=== PATIENT | male | born 1995 | race Caucasian/White ===

== ENCOUNTER 2017-05-12 13:30 | Emergency (ER) | payer BC ==
[2017-05-12 13:54] VITALS: BP 140/92
[2017-05-12] MEDS ORDERED: Alum Hydrox/Mag Hydrox/Simeth 30 ML, Lidocaine 2% 15 ML PO ONE ×2 (14:48)
[2017-05-12] MEDS ORDERED: Sodium Chloride 0.9% 10 ML Syringe FLUSH PRN (14:48)
[2017-05-12] MEDS ORDERED: HYDROmorphone 0.5 MG/0.5 ML Syringe IVPUSH ONE (14:49)
[2017-05-12] MEDS ORDERED: Iopamidol 612 MG/ML 150 ML Bottle IVPUSH ONE (14:52)
[2017-05-12] MEDS ORDERED: Diatrizoate Meglumine/Diatrizoate Sodium 37% 120 ML Bottle PO ONE (14:52)
[2017-05-12] MEDS ORDERED: Sodium Chloride 0.9% 10 ML Syringe FLUSH ONE (14:52)
--- NOTE | 2017-05-12 14:54 | EDM.PDOC ---
ED HPI GENERAL MEDICAL PROBLEM - General Chief Complaint: Gastrointestinal Problem Stated Complaint: ABDOMINAL PAIN Time Seen by Provider: 05/12/17 14:32 Source of Information: Reports: Patient History Limitations: Reports: No Limitations - History of Present Illness INITIAL COMMENTS - FREE TEXT/NARRATIVE: Patient is a 21-year-old male who presents to the ED complaining of sudden onset of left lower quadrant abdominal pain/flank pain that started this morning. States the pain is constant with waxing waning in intensity. At its peak it was in 8 or 9 out of 10. Currently is 5 out of 10. States the pain is worsened with palpation. Pain has radiated to the periumbilical region at this point. There is some mild nauseous with onset of discomfort. Denies any fever but notes that he does get flushed at times. He's had no similar symptoms in the past. No pain to his groin or testicles. No dysuria. No hematuria. No history ofkidney stones or diverticuli. No recent sick exposures or diarrhea. He does have acid reflux but states it's minimal. Denies any blood within the stools. He has no past medical history and currently taking no medications. Left Lower Abdomen Pain Score (Numeric/FACES): 5 - Related Data Allergies Allergy/AdvReac Type Severity Reaction Status Date / Time azithromycin [From Zithromax] Allergy Hives Verified 05/12/17 13:54 Home Meds: Home Meds . [No Known Home Meds] 05/12/17 [History] Past Medical History - Past Health History Medical/Surgical History: Denies Medical/Surgical History Social & Family History - Family History Family Medical History: Noncontributory - Tobacco Use Smoking Status *Q: Never Smoker Second Hand Smoke Exposure: No - Caffeine Use Caffeine Use: Reports: Coffee - Alcohol Use Days Per Week of Alcohol Use: 3 Number of Drinks Per Day: 1 Total Drinks Per Week: 3 - Recreational Drug Use Recreational Drug Use: No ED ROS GENERAL - Review of Systems Review Of Systems: ROS reveals no pertinent complaints other than HPI. ED EXAM, GI/ABD - Physical Exam Exam: See Below Exam Limited By: No Limitations General Appearance: Alert, WD/WN, Mild Distress Ears: Hearing Grossly Normal Nose: Normal Inspection Throat/Mouth: Normal Voice, No Airway Compromise Neck: Normal Inspection, Supple Respiratory/Chest: No Respiratory Distress, Lungs Clear, Normal Breath Sounds, No Accessory Muscle Use Cardiovascular: Normal Peripheral Pulses, Regular Rate, Rhythm, No Murmur GI/Abdominal Exam: Normal Bowel Sounds, Soft, No Organomegaly, No Distention, Other (Negative McBurney's or Greene sign. Pain along the left upper quadrant and also left lower quadrant. Quite tender with palpation. No rash present.) (Male) Exam: Deferred (No complaints per patient.) Back Exam: Normal Inspection. No: CVA Tenderness (L), CVA Tenderness (R) Neurological: Alert, Oriented, CN II-XII Intact, Normal Cognition, No Motor/ Sensory Deficits Psychiatric: Normal Affect, Normal Mood Skin Exam: Warm, Dry, Intact, Normal Color, No Rash Course - Vital Signs Last Recorded V/S: Last Vital Signs Temp 96.9 F 05/12/17 13:47 Pulse 72 05/12/17 13:47 Resp 18 05/12/17 13:47 BP 140/92 H 05/12/17 13:47 Pulse Ox 96 05/12/17 13:47 - Orders/Labs/Meds Orders: Active Orders 24 hr Category Date Time Status Peripheral IV Care [RC] . DIRECTED Care 05/12/17 14:48 Active UA W/MICROSCOPIC [URIN] Stat Lab 05/12/17 14:48 Uncollected Sodium Chloride 0.9% [Normal Saline] 1,000 ml Med 05/12/17 15:00 Active IV ASDIRECTED Sodium Chloride 0.9% [Saline Flush] Med 05/12/17 14:48 Active 10 ml FLUSH ASDIRECTED PRN Peripheral IV Insertion Adult [OM.PC] Stat Oth 05/12/17 14:48 Ordered Medication Orders Sodium Chloride (Normal Saline) 1,000 mls @ 250 mls/hr IV ASDIRECTED HUSEYIN Last Admin: 05/12/17 15:03 Dose: 250 mls/hr Sodium Chloride (Saline Flush) 10 ml FLUSH ASDIRECTED PRN PRN Reason: Keep Vein Open Last Admin: 05/12/17 15:03 Dose: 10 ml Labs: Laboratory Tests 05/12/17 05/12/17 Range/Units 14:50 14:50 WBC 6.51 (4.23-9.07) K/mm3 RBC 4.93 (4.63-6.08) M/mm3 Hgb 15.5 (13.7-17.5) gm/L Hct 43.2 (40.1-51.0) % MCV 87.6 (79.0-92.2) fl MCH 31.4 (25.7-32.2) pg MCHC 35.9 H (32.2-35.5) g/dl RDW Std Deviation 39.8 (35.1-43.9) fL Plt Count 282 (163-337) K/mm3 MPV 9.3 L (9.4-12.3) fl Neut % (Auto) 63.8 (34.0-67.9) % Lymph % (Auto) 25.3 (21.8-53.1) % [place] % (Auto) 8.1 (5.3-12.2) % Eos % (Auto) 2.3 (0.8-7.0) Baso % (Auto) 0.5 (0.1-1.2) % Neut # (Auto) 4.15 (1.78-5.38) K/mm3 Lymph # (Auto) 1.65 (1.32-3.57) K/mm3 [place] # (Auto) 0.53 (0.30-0.82) K/mm3 Eos # (Auto) 0.15 (0.04-0.54) K/mm3 Baso # (Auto) 0.03 (0.01-0.08) K/mm3 Sodium 138 (136-145) mEq/L Potassium 3.7 (3.5-5.1) mEq/L Chloride 102 (98-107) mEq/L Carbon Dioxide 27 (21-32) mEq/L Anion Gap 12.7 (5-15) BUN 12 (7-18) mg/dL Creatinine 0.9 (0.7-1.3) mg/dL Est Cr Clr Drug Dosing 149.69 mL/min Estimated GFR (MDRD) > 60 (>60) mL/min BUN/Creatinine Ratio 13.3 L (14-18) Glucose 95 (74-106) mg/dL Calcium 9.1 (8.5-10.1) mg/dL Total Bilirubin 1.2 H (0.2-1.0) mg/dL AST 38 H (15-37) U/L ALT 70 H (16-63) U/L Alkaline Phosphatase 91 (46-116) U/L C-Reactive Protein < 0.2 (<1.0) mg/dL Total Protein 7.5 (6.4-8.2) g/dl Albumin 4.1 (3.4-5.0) g/dl Globulin 3.4 gm/dL Albumin/Globulin Ratio 1.2 (1-2) Lipase 120 (73-393) U/L Meds: Medications Generic Name Dose Route Start Last Admin Trade Name Mino PRN Reason Stop Dose Admin Sodium Chloride 1,000 mls @ 250 mls/hr 05/12/17 15:00 05/12/17 15:03 Normal Saline IV 250 mls/hr ASDIRECTED HUSEYIN Administration Sodium Chloride 10 ml 05/12/17 14:48 05/12/17 15:03 Saline Flush FLUSH 10 ml ASDIRECTED PRN Administration Keep Vein Open Discontinued Medications Generic Name Dose Route Start Last Admin Trade Name Mino PRN Reason Stop Dose Admin Al Hydroxide/Mg Hydroxide 30 0 ml 05/12/17 14:48 05/12/17 15:04 ml/ Lidocaine HCl 15 ml PO 05/12/17 14:49 45 ml ONETIME ONE Administration Diatrizoate Meglum/Diatrizoate Sod 90 ml 05/12/17 14:52 05/12/17 16:37 Gastrografin 37% PO 05/12/17 14:53 90 ml ONETIME ONE Administration Hydromorphone HCl 0.25 mg 05/12/17 14:49 05/12/17 15:05 Dilaudid IVPUSH 05/12/17 14:50 0.25 mg ONETIME ONE Administration Iopamidol 125 ml 05/12/17 14:52 05/12/17 16:37 Isovue-300 (61%) IVPUSH 05/12/17 14:53 125 ml ONETIME ONE Administration Sodium Chloride 10 ml 05/12/17 14:52 05/12/17 16:37 Saline Flush FLUSH 05/12/17 14:53 10 ml ONETIME ONE Administration - Re-Assessments/Exams Free Text/Narrative Re-Assessment/Exam: IV established with normal saline 999 mL per hour, Dilaudid 0.25 mg IVP, and also GI cocktail. Initial labs and studies include CBC, chem 14, CRP, lipase, and UA. Will go ahead and order CT the abdomen and pelvis with IV and oral contrast. Patient has significant pain with palpation of the left upper and lower lower quadrant pain. No CVA tenderness. Unclear etiology current complaint. Will rule out diverticulitis. Labs reviewed: CBC essentially normal. She panel revealed creatinine 0.9, CRP less than 0.2, mildly elevated liver function tests, and lipase 120. 05/12/17 17:10 CT abdomen and pelvis impression: Small hiatal hernia with gastroesophageal reflux of contrast. No additional abnormality is identified on CT study of the abdomen and pelvis. Unclear etiology current complaint. Will discharge patient home with instructions as documented. Departure - Departure Time of Disposition: 17:19 Disposition: Home, Self-Care 01 Condition: Good Clinical Impression: Abdominal pain - Discharge Information Instructions: Abdominal Pain, Adult, [id number], Pain Medicine Instructions, [id number] Referrals: PCP,Not In Area [Primary Care Provider] - Forms: ED Department Discharge, ED Return to Work/School Form Additional Instructions: As discussed no concerning findings on labs and CT study of the abdomen and pelvis. Etiology current complaint most likely muscle skeletal in nature. At this point symptomatic treatment will be appropriate including Tylenol and Motrin in alternating fashion for discomfort. Push the fluids. Refrain any activities that cause worsening pain. Follow-up with PCP in the next week or so if symptoms persist. Return to the ED if you develop any new or worsening symptoms. - My Orders Last 24 Hours: My Active Orders 05/12/17 14:48 Peripheral IV Care [RC] . DIRECTED UA W/MICROSCOPIC [URIN] Stat Sodium Chloride 0.9% [Saline Flush] 10 ml FLUSH ASDIRECTED PRN Peripheral IV Insertion Adult [OM.PC] Stat 05/12/17 15:00 Sodium Chloride 0.9% [Normal Saline] 1,000 ml IV ASDIRECTED - Assessment/Plan Last 24 Hours: My Active Orders 05/12/17 14:48 Peripheral IV Care [RC] . DIRECTED UA W/MICROSCOPIC [URIN] Stat Sodium Chloride 0.9% [Saline Flush] 10 ml FLUSH ASDIRECTED PRN Peripheral IV Insertion Adult [OM.PC] Stat 05/12/17 15:00 Sodium Chloride 0.9% [Normal Saline] 1,000 ml IV ASDIRECTED
[2017-05-12] MEDS ORDERED: Sodium Chloride 0.9% 1,000 ML IV SCH (15:00)
--- NOTE | 2017-05-12 17:05 | CT ---
CT abdomen and pelvis Technique: Multiple axial sections were obtained from above the dome of the diaphragm inferiorly through the pubic symphysis. Intravenous and oral contrast has been given. Delayed images were also obtained through the bladder. Comparison: No prior abdominal imaging is available. Findings: Small portion of the visualized lung bases are clear. Small hiatal hernia is seen with gastroesophageal reflux of contrast. Liver shows no focal parenchymal abnormality. Spleen appears within normal limits. Adrenal glands show no nodule. Pancreas is within normal limits. Gallbladder contains no calcified gallstones. Kidneys show symmetric contrast enhancement without hydronephrosis or mass. Aorta shows no aneurysmal dilatation. No retroperitoneal adenopathy or mesenteric abnormalities are seen. Appendix is seen which is normal in size. No pelvic mass or adenopathy is seen. Delayed images shows contrast within the distal ureters and within the bladder. Bone window settings were reviewed which appear within normal limits for the patient's age. Impression: 1. Small hiatal hernia with gastroesophageal reflux of contrast. 2. No additional abnormality is identified on CT study of the abdomen and pelvis. Diagnostic code #2
== END 2017-05-12 17:35 | disposition home or self-care (01) ==
LOC: JD.ED 13:30
DX: R10.32 Left lower quadrant pain (principal)
CPT/HCPCS: 36415; 74177; 80053; 83690; 85025; 86140; 96361; 96374; 99284; A9270; J1170; J7040; J7050; Q9963; Q9967

== ENCOUNTER 2017-08-06 07:36 | Emergency (ER) | payer BC ==
--- NOTE | 2017-08-06 08:05 | EDM.PDOC ---
ED HPI GENERAL MEDICAL PROBLEM - General Chief Complaint: Fever Stated Complaint: FEVER Time Seen by Provider: 08/06/17 08:05 Source of Information: Reports: Patient History Limitations: Reports: No Limitations - History of Present Illness INITIAL COMMENTS - FREE TEXT/NARRATIVE: 21-year-old male presents the ED with acute onset of high fever and associated nausea and vomiting. He states he awoke from sleep around 0200 hrs. this morning feeling very hot and flushed. He then began to express nausea and did have emesis of some partially undigested food and then bilious material such police had several bouts of dry heaves with minimal production of bile. No diarrhea. States he aches all over the headache particular a deep back muscular pain. Thigh pain difficult to walk. States his eyes hurt and are sensitive to the light. Has a mild cough nonproductive. He can't remember if he's met anybody in the last couple of days with influenza. At this time he remains quite nauseated. He did take some sinus congestion medication which she did keep down. Onset: Today Onset Date: 08/06/17 Onset Time: 02:00 Duration: Hour(s): Location: Reports: Generalized (Generalized myalgia with a headache. High fever clinically feels about 103.) Quality: Reports: Ache, Throbbing Severity: Moderate Improves with: Reports: None Worsens with: Reports: None Context: Denies: Activity, Exercise, Lifting, Sick Contact, Trauma, Other Associated Symptoms: Reports: Cough, Diaphoresis, Fever/Chills, Headaches, Loss of Appetite, Malaise, Nausea/Vomiting (Nausea and vomiting at onset of illness at 0200 hrs. this morning.). 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) (Took a sinus tablet which likely contain Motrin.) Lower Back Pain Score (Numeric/FACES): 8 - Related Data Allergies Allergy/AdvReac Type Severity Reaction Status Date / Time azithromycin [From Zithromax] Allergy Hives Verified 08/06/17 07:46 Home Meds: Home Meds Ondansetron [Zofran] 4 mg BUCCAL Q6H PRN #8 tab 08/06/17 [Rx] Oseltamivir [Tamiflu] 75 mg PO BID #10 cap 08/06/17 [Rx] Past Medical History - Past Health History Medical/Surgical History: Denies Medical/Surgical History Social & Family History - Family History Family Medical History: Noncontributory - Tobacco Use Smoking Status *Q: Never Smoker Second Hand Smoke Exposure: No - Caffeine Use Caffeine Use: Reports: Coffee - Alcohol Use Days Per Week of Alcohol Use: 3 Number of Drinks Per Day: 1 Total Drinks Per Week: 3 - Recreational Drug Use Recreational Drug Use: No - Living Situation & Occupation Living situation: Reports: Single Occupation: Employed ED ROS GENERAL - Review of Systems Review Of Systems: See Below Constitutional: Reports: Fever, Chills, Malaise, Weakness, Fatigue, Diaphoresis , Decreased Appetite HEENT: Reports: No Symptoms Respiratory: Reports: No Symptoms Cardiovascular: Reports: No Symptoms Endocrine: Reports: No Symptoms GI/Abdominal: Reports: Nausea, Vomiting : Reports: No Symptoms Musculoskeletal: Reports: Muscle Pain Skin: Reports: No Symptoms (Generalized myalgia.) Neurological: Reports: No Symptoms Psychiatric: Reports: No Symptoms Hematologic/Lymphatic: Reports: No Symptoms Immunologic: Reports: No Symptoms ED EXAM, GENERAL - Physical Exam Exam: See Below Exam Limited By: No Limitations General Appearance: Alert, WD/WN, Moderate Distress (Appears ill and is better warm to palpation.) Eye Exam: Bilateral Eye: Other (Eyes are very photosensitive to light.) Throat/Mouth: Normal Inspection, Normal Lips, Normal Teeth, Normal Oropharynx Head: Atraumatic, Normocephalic Neck: Normal Inspection, Supple, Non-Tender, Full Range of Motion Respiratory/Chest: Lungs Clear, Normal Breath Sounds, Respiratory Distress Cardiovascular: Normal Peripheral Pulses, Regular Rate, Rhythm, No Edema, No Gallop, No Murmur (Mild tachypnea at rest.) Peripheral Pulses: 3+: Posterior Tibial (L), Posterior Tibial (R), Dorsalis Pedis (L), Dorsalis Pedis (R) GI/Abdominal: Normal Bowel Sounds, Soft, Non-Tender, No Organomegaly, No Abnormal Bruit, No Mass, Pelvis Stable Back Exam: Normal Inspection, Full Range of Motion, CVA Tenderness (L), CVA Tenderness (R) Extremities: Normal Inspection, Normal Range of Motion, Non-Tender, No Pedal Edema Neurological: Alert, Oriented, CN II-XII Intact, Normal Cognition Psychiatric: Other (Feeling ill.) Skin Exam: Warm, Dry, Intact, Normal Color, No Rash, Diaphoretic Course - Vital Signs Last Recorded V/S: Last Vital Signs Temp 36.9 C 08/06/17 08:50 Pulse 80 08/06/17 09:44 Resp 18 08/06/17 09:44 BP 105/53 L 08/06/17 09:44 Pulse Ox 98 08/06/17 09:44 - Orders/Labs/Meds Orders: Active Orders 24 hr Category Date Time Status Peripheral IV Care [RC] . DIRECTED Care 08/06/17 08:15 Active Chest 1V Frontal [CR] Stat Exams 08/06/17 08:21 Taken INFLUENZA A+B AG SCREEN [RM] Stat Lab 08/06/17 08:15 Ordered UA W/MICROSCOPIC [URIN] Stat Lab 08/06/17 08:35 Ordered Dextrose 5%-0.9% NaCl [Dextrose 5%-Normal Saline] 1,000 Med 08/06/17 08:30 Active ml IV ASDIRECTED Ketorolac [Toradol] Med 08/06/17 08:30 Active 30 mg IVPUSH ONETIME Sodium Chloride 0.9% [Saline Flush] Med 08/06/17 08:15 Active 10 ml FLUSH ASDIRECTED PRN Peripheral IV Insertion Adult [OM.PC] Stat Oth 08/06/17 08:14 Ordered Medication Orders Dextrose/Sodium Chloride (Dextrose 5%-Normal Saline) 1,000 mls @ 500 mls/hr IV ASDIRECTED HUSEYIN Last Admin: 08/06/17 08:31 Dose: 500 mls/hr Ketorolac Tromethamine (Toradol) 30 mg IVPUSH ONETIME HUSEYIN Last Admin: 08/06/17 08:48 Dose: 30 mg Sodium Chloride (Saline Flush) 10 ml FLUSH ASDIRECTED PRN PRN Reason: Keep Vein Open Last Admin: 08/06/17 08:20 Dose: 10 ml Labs: Laboratory Tests 08/06/17 08/06/17 08/06/17 Range/Units 08:20 08:20 08:35 WBC 6.04 (4.23-9.07) K/mm3 RBC 4.67 (4.63-6.08) M/mm3 Hgb 14.7 (13.7-17.5) gm/L Hct 41.7 (40.1-51.0) % MCV 89.3 (79.0-92.2) fl MCH 31.5 (25.7-32.2) pg MCHC 35.3 (32.2-35.5) g/dl RDW Std Deviation 41.0 (35.1-43.9) fL Plt Count 206 (163-337) K/mm3 MPV 9.5 (9.4-12.3) fl Neut % (Auto) 77.5 H (34.0-67.9) % Lymph % (Auto) 8.1 L (21.8-53.1) % [place] % (Auto) 13.4 H (5.3-12.2) % Eos % (Auto) 0.5 L (0.8-7.0) Baso % (Auto) 0.3 (0.1-1.2) % Neut # (Auto) 4.68 (1.78-5.38) K/mm3 Lymph # (Auto) 0.49 L (1.32-3.57) K/mm3 [place] # (Auto) 0.81 (0.30-0.82) K/mm3 Eos # (Auto) 0.03 L (0.04-0.54) K/mm3 Baso # (Auto) 0.02 (0.01-0.08) K/mm3 Manual Slide Review Abnormal smear Sodium 132 L (136-145) mEq/L Potassium 4.0 (3.5-5.1) mEq/L Chloride 98 (98-107) mEq/L Carbon Dioxide 24 (21-32) mEq/L Anion Gap 14.0 (5-15) BUN 12 (7-18) mg/dL Creatinine 1.1 (0.7-1.3) mg/dL Est Cr Clr Drug Dosing 122.47 mL/min Estimated GFR (MDRD) > 60 (>60) mL/min BUN/Creatinine Ratio 10.9 L (14-18) Glucose 101 (74-106) mg/dL Calcium 9.3 (8.5-10.1) mg/dL Total Bilirubin 0.8 (0.2-1.0) mg/dL AST 22 (15-37) U/L ALT 41 (16-63) U/L Alkaline Phosphatase 75 (46-116) U/L C-Reactive Protein 0.6 (<1.0) mg/dL Total Protein 7.5 (6.4-8.2) g/dl Albumin 4.3 (3.4-5.0) g/dl Globulin 3.2 gm/dL Albumin/Globulin Ratio 1.3 (1-2) Urine Color Yellow (Yellow) Urine Appearance Clear (Clear) Urine pH 6.0 (5.0-8.0) Ur Specific [place] 1.010 (1.005-1.030) Urine Protein Negative (Negative) Urine Glucose (UA) Negative (Negative) Urine Ketones Negative (Negative) Urine Occult Blood Trace-intact H (Negative) Urine Nitrite Negative (Negative) Urine Bilirubin Negative (Negative) Urine Urobilinogen 0.2 (0.2-1.0) Ur Leukocyte Esterase Negative (Negative) Urine RBC 0-5 (0-5) /hpf Urine WBC 0-5 (0-5) /hpf Ur Epithelial Cells Not seen (0-5) /hpf Urine Bacteria Not seen (FEW) /hpf Urine Mucus Not seen (FEW) /hpf Meds: Medications Generic Name Dose Route Start Last Admin Trade Name Freq PRN Reason Stop Dose Admin Dextrose/Sodium Chloride 1,000 mls @ 500 mls/hr 08/06/17 08:30 08/06/17 08:31 Dextrose 5%-Normal Saline IV 500 mls/hr ASDIRECTED HUSEYIN Administration Ketorolac Tromethamine 30 mg 08/06/17 08:30 08/06/17 08:48 Toradol IVPUSH 30 mg ONETIME HUSEYIN Administration Sodium Chloride 10 ml 08/06/17 08:15 08/06/17 08:20 Saline Flush FLUSH 10 ml ASDIRECTED PRN Administration Keep Vein Open Discontinued Medications Generic Name Dose Route Start Last Admin Trade Name Freq PRN Reason Stop Dose Admin Acetaminophen 975 mg 08/06/17 08:20 08/06/17 08:50 Tylenol PO 08/06/17 08:21 975 mg NOW ONE Administration Diphenhydramine HCl 25 mg 08/06/17 08:41 08/06/17 08:42 Benadryl IVPUSH 08/06/17 08:42 Not Given ONETIME ONE Diphenhydramine HCl 25 mg 08/06/17 08:41 08/06/17 08:45 Benadryl IVPUSH 08/06/17 08:42 25 mg ONETIME ONE Administration Metoclopramide HCl 10 mg 08/06/17 08:20 08/06/17 08:29 Reglan IVPUSH 08/06/17 08:21 10 mg ONETIME ONE Administration - Radiology Interpretation Free Text/Narrative:: 21-year-old male presents the ED with acute onset of high fever with chills and associated nausea and vomiting about 0200 hrs. this morning. He continues to have high fever and is diaphoretic at this time. Closer soak. He complains of diffuse myalgia particularly his low back and thighs.. Eyes are photosensitive to light. Examination of his ears nose and throat do not show any active infection. There is no cervical adenopathy. Chest is clear no stage percussion heart was sinus. No rashes. Clinically suspect acute influenza B. Treatment will be IV D5 normal saline at 500 mils per hour. Given Reglan 10 mg IV to arrest vomiting. Toradol 30 mg IV for diffuse ache and pain. Will have Tylenol 975 mg given orally in 20 minutes after the Reglan to help bring down his fever. Routine labs ordered and influenza B screen. One view chest x-ray to be done. Urinalysis ordered. - Re-Assessments/Exams Free Text/Narrative Re-Assessment/Exam: 08/06/17 08:41 patient is experiencing adverse effects of the Reglan with akathisia. Will administer Benadryl 25 mg IV. 08/06/17 09:24 Patient is feeling back to normal after receiving the Benadryl for mild akathisia. Labs reveal a normal white count at 6.04. The differential is 78% neutrophils. Hemoglobin is 14.7 with hematocrit of 41.7. Platelet count is 206,000. Sodium is 132 a mildly low. Potassium 4.0. Chloride is 98 with a bicarbonate 24. And a gap is 14.0 [place] is 12. Glucose is 101. Chemistry is otherwise completely normal. His initial screen for influenza is negative. One view chest x-ray done portably is within normal limits showing no signs of infection or pneumothorax. Cardiac silhouette is normal. 08/06/17 10:39 patient still febrile. He states he feels much improved however. Clinically has influenza B I suspect the current screen is within the first 24 hours and is a false negative. Plan will be to treat him with Motrin 600 mg every 6 hours to break his fever. Plenty of fluids such as Gatorade or Powerade as he may not have any appetite. We'll start him on Tamiflu 75 mg twice a day for the next 5 days. No will be given to excuse him from the workplace until next Friday. Departure - Departure Time of Disposition: 10:40 Disposition: Home, Self-Care 01 Condition: Fair Clinical Impression: Influenza - Discharge Information Prescriptions: Ondansetron [Zofran] 4 mg BUCCAL Q6H PRN #8 tab PRN Reason: nausea or vomiting Oseltamivir [Tamiflu] 75 mg PO BID #10 cap Referrals: PCP,None [Primary Care Provider] - Forms: ED Department Discharge, ED Return to Work/School Form Additional Instructions: Evaluation in the emergency room today in regards to acute onset of illness with high fever bodyaches headache and minimal cough. Associated nausea and vomiting. Examination reveals you to be markedly febrile. Investigations revealed a chest x-ray to be normal. Lab tests revealed a normal white count or suggesting viral illness. The influenza screen came back negative which it often does if the testing is done within the first 24 hours of onset of illness. Clinically however you have all the signs and symptoms of influenza type B. You received a liter of IV fluids in the ED with oral Tylenol and Reglan to stop the nausea and vomiting. Treatment at home is Zofran 4 mg under the tongue every 4 hours as needed for relief of nausea or upset stomach. Suggest Motrin 600 mg every 6 hours to relieve pain and fever and inflammation. Antiviral medications to be Tamiflu 75 mg twice daily for the next 5 days. Plenty of fluids such as Gatorade or Powerade. Diet as tolerated. You should be off work for the next 5 days as you're considered contagious to others by coughing. - My Orders Last 24 Hours: My Active Orders 08/06/17 08:15 INFLUENZA A+B AG SCREEN [RM] Stat 08/06/17 08:21 Chest 1V Frontal [CR] Stat 08/06/17 08:30 Dextrose 5%-0.9% NaCl [Dextrose 5%-Normal Saline] 1,000 ml IV ASDIRECTED Ketorolac [Toradol] 30 mg IVPUSH ONETIME - Assessment/Plan Last 24 Hours: My Active Orders 08/06/17 08:15 INFLUENZA A+B AG SCREEN [RM] Stat 08/06/17 08:21 Chest 1V Frontal [CR] Stat 08/06/17 08:30 Dextrose 5%-0.9% NaCl [Dextrose 5%-Normal Saline] 1,000 ml IV ASDIRECTED Ketorolac [Toradol] 30 mg IVPUSH ONETIME
[2017-08-06] MEDS ORDERED: Sodium Chloride 0.9% 10 ML Syringe FLUSH PRN (08:15)
[2017-08-06] MEDS ORDERED: Acetaminophen 325 MG Tab PO ONE (08:20)
[2017-08-06] MEDS ORDERED: Metoclopramide 10 MG/2 ML SDV IVPUSH ONE (08:20)
[2017-08-06] MEDS ORDERED: Ketorolac 30 MG/ML SDV IVPUSH SCH (08:30)
[2017-08-06] MEDS ORDERED: Dextrose 5%-0.9% NaCl 1,000 ML IV SCH (08:30)
[2017-08-06] MEDS ORDERED: diphenhydrAMINE 50 MG/ML SDV IVPUSH ONE ×2 (08:41)
[2017-08-06 10:44] VITALS: BP 110/55
--- NOTE | 2017-08-06 16:51 | CR ---
Chest: Portable view of the chest was obtained. Comparison: No prior chest x-ray. Heart size and mediastinum are normal. Lungs are clear. Bony structures are grossly intact. Impression: 1. Nothing acute is seen on portable chest x-ray. Diagnostic code #1
== END 2017-08-06 11:10 | disposition home or self-care (01) ==
LOC: JD.ED 07:36
DX: J11.1 Influenza due to unidentified influenza virus with other respiratory manifestations (principal); Z88.1 Allergy status to other antibiotic agents
CPT/HCPCS: 36415; 71045; 80053; 81001; 85025; 86140; 87804; 96374; 96375; 99284; A9270; J1200; J1885; J2765; J7042; J7050

== ENCOUNTER 2018-08-30 10:33 | Emergency (ER) | payer BC ==
[2018-08-30 11:02] VITALS: BP 147/87
--- NOTE | 2018-08-30 11:38 | EDM.PDOC ---
ED HPI GENERAL MEDICAL PROBLEM - General Chief Complaint: Upper Extremity Injury/Pain Stated Complaint: FRACTURED LEFT WRIST Time Seen by Provider: 08/30/18 11:10 Source of Information: Reports: Patient, RN Notes Reviewed History Limitations: Reports: No Limitations - History of Present Illness INITIAL COMMENTS - FREE TEXT/NARRATIVE: Patient is a 22-year-old male who presents to the ED for the evaluation of a left wrist injury. The patient states that he was at a friend's house, and there are playing football last night. He states that he got tackled and tried to catch himself on his left wrist. He says he fell on an outstretched arm at this time. He states that the pain was not horrible last night as he did not come for evaluation then. 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 He states that when he moves his wrist some pain radiates to the elbow. He denies any numbness or tingling at this time. He denies any pain into his elbow or his shoulder. He did take 400 mg of ibuprofen, and this seemed to help the pain. He would rate his pain at a 7 out of 10 today. The patient notes that he is right hand dominant. Left Wrist Pain Score (Numeric/FACES): 7 - Related Data Allergies Allergy/AdvReac Type Severity Reaction Status Date / Time azithromycin [From Zithromax] Allergy Hives Verified 08/30/18 10:59 Home Meds: Home Meds . [No Known Home Meds] 08/30/18 [History] Past Medical History - Past Health History Medical/Surgical History: Denies Medical/Surgical History Social & Family History - Family History Family Medical History: Noncontributory - Tobacco Use Smoking Status *Q: Never Smoker - Caffeine Use Caffeine Use: Reports: Coffee - Living Situation & Occupation Living situation: Reports: Single Occupation: Employed Review of Systems - Review of Systems Review Of Systems: See Below Constitutional: Reports: No Symptoms Eyes: Reports: No Symptoms Ears: Reports: No Symptoms Nose: Reports: No Symptoms Mouth/Throat: Reports: No Symptoms Respiratory: Reports: No Symptoms Cardiovascular: Reports: No Symptoms GI/Abdominal: Reports: No Symptoms Genitourinary: Reports: No Symptoms Musculoskeletal: Reports: Arm Pain (Left forearm with movement), Joint Pain ( Left wrist). Denies: Hand Pain Skin: Reports: No Symptoms Neurological: Reports: No Symptoms Psychiatric: Reports: No Symptoms ED EXAM, GENERAL - Physical Exam Exam: See Below Exam Limited By: No Limitations General Appearance: Alert, WD/WN, No Apparent Distress Eye Exam: Bilateral Eye: Normal Inspection Ears: Normal External Exam Nose: Normal Inspection Throat/Mouth: Normal Inspection Head: Atraumatic, Normocephalic Neck: Normal Inspection Respiratory/Chest: No Respiratory Distress, Lungs Clear, Normal Breath Sounds, No Accessory Muscle Use, Chest Non-Tender Cardiovascular: Normal Peripheral Pulses, Regular Rate, Rhythm, No Murmur Extremities: Normal Inspection, Normal Capillary Refill, Joint Swelling (slight swelling to anterior wrist), Arm Pain (tenderness to palpation of Left anterior wrist.), Limited Range of Motion (d/t pain in L wrist) Neurological: Alert, Oriented, Normal Cognition, Normal Gait, No Motor/Sensory Deficits Psychiatric: Normal Affect, Normal Mood Skin Exam: Warm, Dry, Intact, Normal Color, No Rash Course - Vital Signs Last Recorded V/S: Last Vital Signs Temp 98.1 F 08/30/18 11:00 Pulse 77 08/30/18 11:00 Resp 18 08/30/18 11:00 BP 147/87 H 08/30/18 11:00 Pulse Ox 100 08/30/18 11:00 - Orders/Labs/Meds Orders: Active Orders 24 hr Category Date Time Status Wrist Comp Min 3V Lt [CR] Stat Exams 08/30/18 11:12 Ordered - Re-Assessments/Exams Free Text/Narrative Re-Assessment/Exam: 08/30/18 11:38 Patient presents to the ED for evaluation of a left wrist injury. I did order left wrist x-rays for further evaluation. 08/30/18 12:17 Wrist x-rays are done, and there is no sign of any obvious fracture at this time. Official radiology read is pending. 08/30/18 12:39 Jeaneth has reviewed the patient's wrist x-ray, and notes that there is a lucency in either the hamate or triquetrum seen only on the piece of 4 view, that may represent a nondisplaced fracture, I will splint the gentleman and have him follow-up with ortho. Departure - Departure Time of Disposition: 12:59 Disposition: Home, Self-Care 01 Condition: Fair Clinical Impression: Closed hamate fracture Qualifiers: Encounter type: initial encounter Hamate bone location: unspecified portion of hamate Fracture alignment: nondisplaced Laterality: left Qualified Code(s): S62.145A - Nondisplaced fracture of body of hamate [unciform] bone, left wrist, initial encounter for closed fracture - Discharge Information *PRESCRIPTION DRUG MONITORING PROGRAM REVIEWED*: No *COPY OF PRESCRIPTION DRUG MONITORING REPORT IN PATIENT ROBIN: No Instructions: Cast or Splint Care, Adult, [id number], Wrist Splint, Adult, [id number] Referrals: PCP,None [Primary Care Provider] - Forms: ED Department Discharge, ED Return to Work/School Form Additional Instructions: You have been evaluated in the ED for your left wrist injury. Your x-ray demonstrated a possible nondisplaced fracture of either the hamate or triquetrum bone in your hand. Please use ice as tolerated to the affected area. Please keep the splint in place until you are evaluated by orthopedics. You may take Tylenol 500 mg or ibuprofen 600mg q6 hrs for pain relief. Please do so until you have a tolerable level of pain with activity. Do not exceed 4000mg tylenol, Do not exceed 3200mg ibuprofen in a 24 hour time period. Please call Ortho for follow-up and further evaluation Dr. Mackenzie is our orthopedic surgeon, his office number is [phone]. Please call and set up an appointment as soon as possible for further management. Please return to ED if your symptoms should change or worsen. - My Orders Last 24 Hours: My Active Orders 08/30/18 11:12 Wrist Comp Min 3V Lt [CR] Stat - Assessment/Plan Last 24 Hours: My Active Orders 08/30/18 11:12 Wrist Comp Min 3V Lt [CR] Stat
--- NOTE | 2018-08-31 09:46 | CR ---
Left wrist: 4 views of the left wrist were obtained. Additional navicular view was obtained. Comparison: No prior wrist exam. Joint spaces are preserved. Mild articular irregularity is seen off the radial edge of the lunate bone. There is a fracture noted on the lateral view, uncertain as to which carpal bone this is. Alignment of the carpal bones appears slightly abnormal on the lateral view. Impression: 1. Wrist fracture as noted above. Questionable abnormal alignment of the carpal bones on the lateral view. CT left wrist study is recommended to further evaluate. Diagnostic code #3 Disagree with preliminary report from [facility] (fracture and other questionable finding), finalized on 08/30/18, 1:24 PM Central Time, code #1
== END 2018-08-30 13:20 | disposition home or self-care (01) ==
LOC: JD.ED 10:33
DX: S62.145A Nondisplaced fracture of body of hamate [unciform] bone, left wrist, initial encounter for closed fracture (principal); Z88.1 Allergy status to other antibiotic agents; W19.XXXA Unspecified fall, initial encounter; Y93.61 Activity, american tackle football
CPT/HCPCS: 29125; 73110-26-LT; 73110-LT; 99283; 99283-25